=== PATIENT | female | born 1955 | race Caucasian/White ===

== ENCOUNTER 2018-08-11 02:15 | Outpatient (CLI) | payer OTHER, SELFPAY ==
[2018-08-11 10:35] LABS: Hemoglobin A1C 6.2 % (4.5-6.2)
[2018-08-11 13:26] LABS: ALT 100 U/L (12-78); AST 41 U/L (15-37); Albumin 3.9 g/dL (3.4-5.0); Alkaline Phosphatase 87 U/L (46-116); Anion Gap 11.4 mmol/L (3-11); BUN 20 mg/dL (7-18); Bilirubin, Total 0.4 mg/dL (0.2-1.0); CO2 24.6 mmol/L (21.0-32.0); Calcium 9.6 mg/dL (8.5-10.1); Chloride 104 mmol/L (98-107); Cholesterol 218 mg/dL (50-200); Glucose 122 mg/dL (70-100); HDL Cholesterol 37 mg/dL (40-60); LDL CHOLESTEROL 150 mg/dL (<100); Potassium 4.6 mmol/L (3.5-5.1); Sodium 140 mmol/L (136-145); Total Protein 7.1 g/dL (6.4-8.2); Triglyceride 177 mg/dL (30-150)
== END 2018-08-11 02:35 ==
DX: I10 Essential (primary) hypertension (principal); G47.00 Insomnia, unspecified; E03.9 Hypothyroidism, unspecified; E78.5 Hyperlipidemia, unspecified; J45.909 Unspecified asthma, uncomplicated; K21.9 Gastro-esophageal reflux disease without esophagitis; R63.8 Other symptoms and signs concerning food and fluid intake; R73.01 Impaired fasting glucose; R74.0 Nonspecific elevation of levels of transaminase and lactic acid dehydrogenase [LDH]
CPT/HCPCS: 36415; 80053; 80061; 83721; 83036; 84443

== ENCOUNTER 2018-09-18 00:49 | Outpatient (CLI) | payer OTHER, SELFPAY ==
--- NOTE | 2018-09-18 16:00 | DI.MAMMO_ITS ---
SYMPTOM/DIAGNOSIS: SCREENING, Z12.31 MAMMOGRAMS: Mammograms were interpreted according to the usual protocol including computer analysis with CAD system, tomosynthesis and C view imaging. Comparison is with prior examinations. No suspicious masses or microcalcifications are seen. There is no definite evidence of malignancy. IMPRESSION: Negative mammogram. Routine screening is recommended. Category 1, breast density A. MQSA ASSESSMENT OF FINDINGS: Negative. Category 1. Patient will receive a letter notifying them of these results. BI-RAD category A. The breasts are almost entirely fatty.
== END 2018-09-18 01:09 ==
DX: Z12.31 Encounter for screening mammogram for malignant neoplasm of breast (principal)
CPT/HCPCS: 77063; 77067

== ENCOUNTER 2018-11-12 01:37 | Outpatient (CLI) | payer OTHER, SELFPAY ==
[2018-11-12 09:18] LABS: Hemoglobin A1C 6.1 % (4.5-6.2)
== END 2018-11-12 01:57 ==
DX: E11.9 Type 2 diabetes mellitus without complications (principal)
CPT/HCPCS: 36415; 83036

== ENCOUNTER 2018-11-19 07:09 | Day surgery (SDC) | payer OTHER, SELFPAY ==
--- NOTE | 2018-11-19 06:54 | W.COLOREPORT ---
Date of service: 11/19/18 Time of Service: 08:17 Colonoscopy Report Date of procedure: 11/19/18 Pre-op diagnosis general: Colon Cancer Screening, Family history of rectal cancer in her sister Post-op diagnosis procedure note: other (Transverse polyp, Grade 2 internal hemorrhoids and severe diverticulosis) Procedure: Colonoscopy with polypectomy by cold forceps Surgeon: Magdalena Cortes Anesthesia proc note operative: other (General/ ASA 2/ Mari Dixon CRNA) Estimated blood loss (mL): 3 Pathology: other (Transverse polyp) Complications: None Disposition: same day Indications: Mrs. Thomson is a pleasant 62-year-old female seen in the office for a screening colonoscopy. This will be her first colonoscopy. She has a family history of rectal cancer in her sister who was 61. Risks, benefits and complications have been reviewed. Complications include but are not limited to bleeding, pain, perforation, missed small lesion/polyp, sore throat, aspiration and adverse reaction to the medications. Questions were entertained and answered to their satisfaction and they wished to proceed. No guarantees were given or implied. Prep: Miralax/Dulcolax Procedure Start Time: :17 Procedure End Time: 08:50 Retraction Time: 15 minutes Findings: 1. Sessile Transverse colon polyp 2. Grade 2 Internal Hemorrhoids 3. Severe Diverticulosis of descending and sigmoid colon Procedure Description: After informed consent was obtained the patient was taken to the procedure room and placed in a left decubitous position. Monitors were applied and a time out was done. The patients name, date of , procedure, allergies to medications and metal in their body was reviewed. The patient was then sedated. Once sedated and comfortable a rectal exam was done. External exam was normal. Internal exam revealed a normal sphincter tone and no palpable masses. The scope was then introduced and retro-flexed. Grade 2 internal hemorrhoids were identified. The scope was then advanced to the cecum with difficulty. There was severe diverticulosis noted of the sigmoid and descending colon. The colon was also very tortuous on the left side. The scope was advanced slowly and carefully. The TI and appendiceal orifice were identified. The prep was adequate. The scope was then slowly retracted over 15 minutes back into the rectum. Polyps were removed in the transverse colon with cold forceps. The scope was removed and the patient was woken up and taken back to Same day surgery in stable condition. The patient tolerated the procedure well and there were no immediate complications. Follow up: The patient should follow up in 3-5 years unless they develop changes in bowel habits or other new gastrointestinal complaints.
--- NOTE | 2018-11-19 06:56 | W.PM.DSUDISC ---
Discharge Plan Disposition Patient Disposition: HOME Condition: Good Discharge Details Reason For Visit: Colon Cancer Screening Attending Provider: Magdalena Cortes Primary Care Provider: Katie Dillard Home Meds and New Rx's Prescriptions: Continued Breo Ellipta 200-25 mcg/dose blister with device 1 inh IH DAILY Qty: 30 RF: 11 glipizide 2.5 mg tablet extended release 24hr 2.5 mg PO DAILY Qty: 30 RF: 11 metformin 500 mg tablet 500 mg PO HS Qty: 30 RF: 11 mupirocin calcium 2 % cream 1 applic TP BID Qty: 30 RF: 0 vitamin E 400 UNIT capsule 400 unit PO DAILY RF: 0 calcium carbonate-vitamin D3 1 EACH capsule 1 ea PO DAILY RF: 0 calcium carbonate [Tums] 200 MG tablet,chewable 1 tab.chew PO PRN RF: 0 Natural Tears 1 drp Ophthalmic BID RF: 0 albuterol sulfate [ProAir HFA] 90 mcg/actuation HFA aerosol inhaler 2 puff Inhalation QID PRN Qty: 1 RF: 11 levothyroxine [Synthroid] 100 mcg tablet 100 mcg PO DAILY Qty: 30 RF: 11 loratadine 10 mg tablet 10 mg PO DAILY PRN Qty: 30 RF: 12 pravastatin 40 mg tablet 40 mg PO HS Qty: 30 RF: 12 Discontinued polyethylene glycol 3350 17 gram/dose powder 238 g PO ONCE Qty: 238 RF: 0 bisacodyl [Dulcolax (bisacodyl)] 5 mg tablet,delayed release (DR/EC) 5 mg PO ONCE Qty: 4 RF: 0 Discharge Instructions Instructions: Colonoscopy (GEN), Diverticulosis (ED), Hemorrhoids (ED), Colorectal Polyps (GEN) Additional Instructions: Findings: One polyp Diverticulosis Internal hemorrhoids Follow up: 3-5 years Please call if you develop: fevers >101.5 Nausea or Vomiting Abdominal pain that is not transient DAY SURGERY UNIT POST COLONOSCOPY INSTRUCTIONS 1. Because there will be medication in your system for the next 24 hours, you may feel a little sleepy. Your coordination will be affected. Therefore: a. Do not drive or operate dangerous equipment for 24 hours. b. Do not drink alcohol beverages for 24 hours (not even beer). c. Plan to go home and rest for the day. 2. Generally there are no restrictions on your activity after a day or so has gone by, but you may feel a bit fatigued for a few days. 3 After you arrive home you may have a light meal and return to a normal diet as you can tolerate it without feeling sick to your stomach. 4. After surgery, you may feel pain or discomfort. This should be only transient, but if it persists please contact your doctor. 5. If there are any questions regarding the findings of your procedure, please feel free to contact your doctor. 6. If you are unable to contact your doctor with a problem, contact the hospital at [phone]. 7. Continue all your regular medications unless directed otherwise. I understand the above instructions and have no questions. Signature of Patient or Responsible Adult Escort Date/Time Name of Responsible Adult Escort Signature of Nurse Date/Time Activity:: Activity as Tolerated Diet:: High Fiber diet Discharge Orders Discharge Orders: Discharge Order (Routine); Ordered 11/19/18 Ordered By: Magdalena Cortes DS: Diagnosis Discharge Diagnosis (1) History of colonoscopy: Status: Chronic (2) Diverticulosis: (3) Internal hemorrhoids: (4) Colorectal polyp detected on colonoscopy:
[2018-11-19 07:30] VITALS: BP 130/83; PULSE 80; RESP 16; TEMP 35.8; O2SAT 97
[2018-11-19] MEDS: Lactated Ringers 1,000 ML 80 ML IV (07:35)
[2018-11-19] MEDS: Glycopyrrolate 0.2 MG/1 ML VIAL (08:10)
[2018-11-19] MEDS: PROPOFOL 500 MG/50 ML BTL 25 MG (08:10)
[2018-11-19] MEDS: Lidocaine 2% Pres-Free 5 ML VIAL (08:10)
--- NOTE | 2018-11-19 08:44 | BOWEL_PTH ---
PATIENT: Blas Thomson LOC: [facility] U#:[id number] AGE/SX: 62/F ROOM: RE11/19/[address]: Magdalena Cortes MD : 1955 BED: DIS: 11/19/2018 SPEC #: [id number] RECD: 11/19/18 12:36 STATUS: ABA REQ #: [id number] REGINALD: 11/19/18 08:[address]: Magdalena Cortes DEPT: Surgical Specimen RECD BY: Sissy Callaway ENTERED: 11/19/18 12:37 SP TYPE: Bowel OTHR DR: Katie Dillard APRN Tissues: 1 - BIOPSY BOWEL Procedures: GROSS AND MICRO LEVEL 4 Comments: [id number]
[2018-11-19 09:30] VITALS: BP 124/55; PULSE 63; RESP 16; TEMP 36.2; O2SAT 96
[2018-11-19 09:50] VITALS: BP 120/62; PULSE 60; RESP 18; TEMP 36; O2SAT 94
== END 2018-11-19 10:25 | disposition home or self-care (01) ==
LOC: SUR 07:09
PROVIDERS: Visit Provider Surgery
PROC: 0DJD8ZZ Inspection of Lower Intestinal Tract, Via Natural or Artificial Opening Endoscopic (ICD-10-PCS; CPT 45378; principal; 2018-11-19 08:30)
DX: Z12.11 Encounter for screening for malignant neoplasm of colon (principal); Z80.0 Family history of malignant neoplasm of digestive organs; D12.3 Benign neoplasm of transverse colon; K64.1 Second degree hemorrhoids; K57.30 Diverticulosis of large intestine without perforation or abscess without bleeding; K63.89 Other specified diseases of intestine; K21.9 Gastro-esophageal reflux disease without esophagitis; F17.210 Nicotine dependence, cigarettes, uncomplicated; J45.909 Unspecified asthma, uncomplicated; E11.9 Type 2 diabetes mellitus without complications; E03.9 Hypothyroidism, unspecified
CPT/HCPCS: 45380; 88305

== ENCOUNTER 2019-08-12 20:03 | Outpatient (REF) | payer OTHER, SELFPAY ==
[2019-08-12 19:51] LABS: ALT 36 U/L (14-59); AST 22 U/L (15-37); Alkaline Phosphatase 77 U/L (46-116); Anion Gap 11.1 mmol/L (3-11); BUN 13 mg/dL (7-18); Bilirubin, Total 0.4 mg/dL (0.2-1.0); CO2 23.9 mmol/L (21.0-32.0); CREATININE 0.88 mg/dL (0.55-1.02); Calcium 9.6 mg/dL (8.5-10.1); Calculated LDL 131 mg/dL (<100); Chloride 104 mmol/L (98-107); Cholesterol 224 mg/dL (<200); Glucose 134 mg/dL (74-106); HDL Cholesterol 38 mg/dL (40-60); Potassium 4.5 mmol/L (3.5-5.1); Sodium 139 mmol/L (136-145); TSH (W/Ref FT4) 4.88 uIU/mL (0.36-3.74); Total Protein 7.4 g/dL (6.4-8.2); Triglyceride 275 mg/dL (<150)
[2019-08-12 20:12] LABS: FREE T4 1.38 ng/dL (0.76-1.46)
== END 2019-08-12 20:23 ==
LOC: LBN 20:03
DX: E03.9 Hypothyroidism, unspecified (principal); E11.65 Type 2 diabetes mellitus with hyperglycemia; E78.5 Hyperlipidemia, unspecified; J45.909 Unspecified asthma, uncomplicated; K21.9 Gastro-esophageal reflux disease without esophagitis; R63.8 Other symptoms and signs concerning food and fluid intake
CPT/HCPCS: 80053; 80061; 83036; 84439; 84443

== ENCOUNTER 2019-08-19 17:24 | Outpatient (REF) | payer OTHER, SELFPAY ==
--- NOTE | 2019-08-19 15:20 | PAPFT_PTH ---
PATIENT: Blas Thomson LOC: [facility] U#:[id number] AGE/SX: 63/F ROOM: RE08/19/[address]: Katie Dillard APRN : 1955 BED: DIS: 08/19/2019 SPEC #: [id number] RECD: 08/20/19 13:02 STATUS: ABA HARRISON #: [id number] REGINALD: 08/19/19 15:[address]: Katie Dillard DEPT: [facility] Cytology RECD BY: Sissy Callaway Tissues: 1 - CX/ENDOCX FOR PAP SMEARS Procedures: PAP THIN PREP/UVM Screening HPV DNA PROBE Comments: [id number]
== END 2019-08-19 17:44 ==
LOC: LBN 17:24
DX: Z12.4 Encounter for screening for malignant neoplasm of cervix (principal)
CPT/HCPCS: 88142; 87624

== ENCOUNTER 2019-09-25 02:39 | Outpatient (CLI) | payer OTHER, SELFPAY ==
--- NOTE | 2019-09-25 17:15 | DI.MAMMO_ITS ---
EXAM: MAMMO SCREENING CLINICAL HISTORY: screening Z12.39 TECHNIQUE: Mammograms were interpreted according to the usual protocol including computer analysis w [employer] CAD system, tomosynthesis and C-view imaging. COMPARISON: 2010 through 2018 FINDINGS: The breasts are composed of mainly fatty density , Breast Density category A. No suspicious masses or suspicious microcalcifications are seen. No skin thickening or abnormal axillary lymph nodes are seen. There has been no significant change from prior exams. IMPRESSION: BI-RADS Category 1, negative. Yearly screening mammography is recommended. Breast Density - Category A - Almost entirely fatty
== END 2019-09-25 02:59 ==
DX: Z12.31 Encounter for screening mammogram for malignant neoplasm of breast (principal)
CPT/HCPCS: 77063; 77067

== ENCOUNTER 2019-10-10 01:51 | Outpatient (CLI) | payer OTHER, SELFPAY ==
[2019-10-10 09:38] LABS: Hemoglobin A1C 5.9 % (3.8-5.6)
[2019-10-10 10:17] LABS: ALT 38 U/L (14-59); AST 21 U/L (15-37); Albumin 4.1 g/dL (3.4-5.0); Alkaline Phosphatase 76 U/L (46-116); Anion Gap 10.7 mmol/L (3-11); BUN 15 mg/dL (7-18); Bilirubin, Total 0.4 mg/dL (0.2-1.0); CO2 26.3 mmol/L (21.0-32.0); Calcium 9.9 mg/dL (8.5-10.1); Chloride 104 mmol/L (98-107); Glucose 132 mg/dL (74-106); Potassium 4.5 mmol/L (3.5-5.1); Sodium 141 mmol/L (136-145); TSH (W/Ref FT4) 0.57 uIU/mL (0.36-3.74); Total Protein 7.4 g/dL (6.4-8.2)
== END 2019-10-10 02:11 ==
DX: E03.9 Hypothyroidism, unspecified (principal); E11.65 Type 2 diabetes mellitus with hyperglycemia; G47.00 Insomnia, unspecified; R63.8 Other symptoms and signs concerning food and fluid intake
CPT/HCPCS: 36415; 80053; 83036; 84443

== ENCOUNTER 2020-08-18 03:29 | Outpatient (CLI) | payer OTHER, SELFPAY ==
[2020-08-18 09:08] LABS: ALT 43 U/L (14-59); AST 16 U/L (15-37); Albumin 4.1 g/dL (3.4-5.0); Alkaline Phosphatase 88 U/L (46-116); Anion Gap 10.4 mmol/L (3-11); BUN 19 mg/dL (7-18); Bilirubin, Total 0.4 mg/dL (0.2-1.0); CO2 24.6 mmol/L (21.0-32.0); CREATININE 0.8 mg/dL (0.55-1.02); Calcium 9.5 mg/dL (8.5-10.1); Calculated LDL 119 mg/dL (<100); Chloride 106 mmol/L (98-107); Cholesterol 208 mg/dL (<200); Glucose 141 mg/dL (74-106); HDL Cholesterol 38 mg/dL (40-60); Potassium 4.5 mmol/L (3.5-5.1); Sodium 141 mmol/L (136-145); TSH (W/Ref FT4) 1.26 uIU/mL (0.36-3.74); Total Protein 7.5 g/dL (6.4-8.2); Triglyceride 257 mg/dL (<150)
== END 2020-08-18 03:30 | disposition home or self-care (01) ==
LOC: LBO 03:29
DX: Z00.00 Encounter for general adult medical examination without abnormal findings (principal); E11.65 Type 2 diabetes mellitus with hyperglycemia; E78.5 Hyperlipidemia, unspecified; E03.9 Hypothyroidism, unspecified
CPT/HCPCS: 36415; 80053; 80061; 83036; 84443

== ENCOUNTER 2020-09-04 16:07 | Outpatient (REF) | payer OTHER, SELFPAY ==
--- NOTE | 2020-09-04 15:55 | PAPFT_PTH ---
PATIENT: Blas Thomson LOC: [facility] U#:[id number] AGE/SX: 64/F ROOM: RE09/04/[address]: Nancy Ortega DO : 1955 BED: DIS: 09/04/2020 SPEC #: [id number] RECD: 09/04/20 17:59 STATUS: ABA REQ #: [id number] REGINALD: 09/04/20 15:[address]: Nancy Ortega DEPT: [facility] Cytology RECD BY: Sissy Callaway ENTERED: 09/04/20 17:59 SP TYPE: PAPFT OTHR DR: Katie Dillard APRN Tissues: 1 - CX/ENDOCX FOR PAP SMEARS Procedures: PAP THIN PREP/UVM Screening HPV DNA PROBE Comments: [id number]
== END 2020-09-04 16:08 | disposition home or self-care (01) ==
LOC: LBN 16:07
PROVIDERS: Visit Provider Obstetrics & Gynecology
DX: Z12.4 Encounter for screening for malignant neoplasm of cervix (principal); Z11.51 Encounter for screening for human papillomavirus (HPV); R87.810 Cervical high risk human papillomavirus (HPV) DNA test positive
CPT/HCPCS: 88142; 87624

== ENCOUNTER 2020-10-01 10:43 | Outpatient (CLI) | payer OTHER, SELFPAY ==
--- NOTE | 2020-10-01 09:45 | DI.MAMMO_ITS ---
Exam(s) MAMMO SCREENING EXAM: MAMMO SCREENING CLINICAL HISTORY: screening,z12.39. TECHNIQUE: Bilateral full field digital CC and MLO mammographic images were obtained with 3D tomosyn thesis and utilizing computer aided detection (CAD). COMPARISON: Prior mammograms dating back to 2011, the most recent being September 2019. FINDINGS: There are no new spiculated masses nor malignant appearing microcalcification groups. There is no significant architectural distortion nor skin thickening-retraction. IMPRESSION: No radiographic evidence of malignancy. BI-RADS Category 1 - Negative Breast Density - Category A - Almost entirely fatty Breast density Category C or D implies that the patient has dense breast tissue. Dense breast tissue can make it harder to find cancer on a mammogram. Dense breast tissue is also associated with an incr eased risk of breast cancer. This information about the result of the mammogram report was provided to the patient to raise their awareness. Use this report when you speak with the patient about their risks for breast cancer, which includes their family history. At that time, you may recommend additional screening tests (Ultrasoun d or MRI) as these tests may add significant information. A negative radiographic report should not delay biopsy if a dominant or clinically suspicious mass is present. Up to ten percent of cancers are not identified on mammography. A negative report may reinforce clinical impression. Adenosis and dense breasts may obscure an underlying neoplasm. False positive reports average 6 to 10%. Patient will receive a letter notifying them of these results.
== END 2020-10-01 11:03 ==
DX: Z12.31 Encounter for screening mammogram for malignant neoplasm of breast (principal)
CPT/HCPCS: 77063; 77067

== ENCOUNTER 2020-10-01 17:42 | Outpatient (REF) | payer OTHER, SELFPAY ==
--- NOTE | 2020-10-01 15:00 | ENDO_PTH ---
PATIENT: Blas Thomson LOC: [facility] U#:[id number] AGE/SX: 64/F ROOM: RE10/01/[address]: Nancy Ortega DO : 1955 BED: DIS: 10/01/2020 SPEC #: [id number] RECD: 10/01/20 17:53 STATUS: ABA REQ #: [id number] REGINALD: 10/01/20 15:[address]: Nancy Ortega DEPT: Surgical Specimen RECD BY: Sissy Callaway ENTERED: 10/01/20 17:54 SP TYPE: Endo OTHR DR: Katie Dillard APRN Tissues: 1 - ENDOCERVICAL BX/CURRETTE 2 - CERVICAL BIOPSY Procedures: GROSS AND MICRO LEVEL 4 Comments: [id number]
== END 2020-10-01 17:43 | disposition home or self-care (01) ==
LOC: LBN 17:42
PROVIDERS: Visit Provider Obstetrics & Gynecology
DX: N87.9 Dysplasia of cervix uteri, unspecified (principal); R87.810 Cervical high risk human papillomavirus (HPV) DNA test positive
CPT/HCPCS: 88305

== ENCOUNTER 2021-02-19 03:36 | Outpatient (CLI) | payer MEDICARE, OTHER, SELFPAY ==
[2021-02-19 09:03] LABS: Hemoglobin A1C 6.1 % (<5.7)
[2021-02-19 10:32] LABS: Calculated LDL 104 mg/dL (<100); Cholesterol 186 mg/dL (<200); HDL Cholesterol 38 mg/dL (40-60); Triglyceride 221 mg/dL (<150)
== END 2021-02-19 03:37 | disposition home or self-care (01) ==
LOC: LBO 03:38
DX: E78.5 Hyperlipidemia, unspecified (principal); E11.65 Type 2 diabetes mellitus with hyperglycemia
CPT/HCPCS: 36415; 80061; 83036

== ENCOUNTER 2021-09-03 01:46 | Outpatient (CLI) | payer OTHER, SELFPAY ==
[2021-09-03 07:34] LABS: Hemoglobin A1C 5.9 % (<5.7)
[2021-09-03 08:07] LABS: ALT 45 U/L (14-59); AST 22 U/L (15-37); Albumin 4.2 g/dL (3.4-5.0); Alkaline Phosphatase 89 U/L (46-116); Anion Gap 8.8 mmol/L (3-11); BUN 16 mg/dL (7-18); Bilirubin, Total 0.5 mg/dL (0.2-1.0); CO2 26.2 mmol/L (21.0-32.0); CREATININE 0.9 mg/dL (0.55-1.02); Calcium 9.4 mg/dL (8.5-10.1); Calculated LDL 88 mg/dL (<100); Chloride 106 mmol/L (98-107); Cholesterol 175 mg/dL (<200); Glucose 138 mg/dL (74-106); HDL Cholesterol 42 mg/dL (40-60); Potassium 4.2 mmol/L (3.5-5.1); Sodium 141 mmol/L (136-145); TSH (W/Ref FT4) 0.62 uIU/mL (0.36-3.74); Total Protein 7.4 g/dL (6.4-8.2); Triglyceride 225 mg/dL (<150)
== END 2021-09-03 01:47 | disposition home or self-care (01) ==
LOC: LBO 01:46
DX: E03.9 Hypothyroidism, unspecified (principal); E11.65 Type 2 diabetes mellitus with hyperglycemia; N20.0 Calculus of kidney; R63.8 Other symptoms and signs concerning food and fluid intake; E78.5 Hyperlipidemia, unspecified
CPT/HCPCS: 36415; 80053; 80061; 83036; 84443

== ENCOUNTER 2021-09-30 16:14 | Outpatient (REF) | payer OTHER, SELFPAY ==
--- NOTE | 2021-09-30 15:45 | PAPFT_PTH ---
PATIENT: Blas Thomson LOC: [facility] U#:[id number] AGE/SX: 65/F ROOM: RE09/30/[address]: Nancy Ortega DO : 1955 BED: DIS: 09/30/2021 SPEC #: [id number] RECD: 09/30/21 18:36 STATUS: ABA REQ #: [id number] REGINALD: 09/30/21 15:[address]: Nancy Ortega DEPT: [facility] Cytology RECD BY: Sissy Callaway ENTERED: 09/30/21 18:37 SP TYPE: PAPFT OTHR DR: Katie Dillard APRN Tissues: 1 - CX/ENDOCX FOR PAP SMEARS Procedures: PAP THIN PREP/UVM Screening HPV DNA PROBE Comments: [id number]
== END 2021-09-30 16:15 | disposition home or self-care (01) ==
LOC: LBN 16:14
PROVIDERS: Visit Provider Obstetrics & Gynecology
DX: Z11.51 Encounter for screening for human papillomavirus (HPV) (principal)
CPT/HCPCS: 88142; 87624

== ENCOUNTER → 2021-10-18 02:20 | Outpatient (CLI) | payer OTHER, SELFPAY ==
--- NOTE | 2021-10-18 08:15 | DI.MAMMO_ITS ---
Exam(s) MAMMO SCREENING EXAM: MAMMO SCREENING CLINICAL HISTORY: screening,z12.39. TECHNIQUE: Bilateral full field digital CC and MLO mammographic images were obtained with 3D tomosyn thesis and utilizing computer aided detection (CAD). COMPARISON: Prior mammograms were reviewed, the most recent being September 2020. FINDINGS: There are no CAD designations. There are no new spiculated masses nor malignant appearing microcalcification groups. There is no significant architectural distortion nor skin thickening-retraction. IMPRESSION: No radiographic evidence of malignancy. BI-RADS Category 1 - Negative Breast Density - Category A - Almost entirely fatty Breast density Category C or D implies that the patient has dense breast tissue. Dense breast tissue can make it harder to find cancer on a mammogram. Dense breast tissue is also associated with an incr eased risk of breast cancer. This information about the result of the mammogram report was provided to the patient to raise their awareness. Use this report when you speak with the patient about their risks for breast cancer, which includes their family history. At that time, you may recommend additional screening tests (Ultrasoun d or MRI) as these tests may add significant information. A negative radiographic report should not delay biopsy if a dominant or clinically suspicious mass is present. Up to ten percent of cancers are not identified on mammography. A negative report may reinforce clinical impression. Adenosis and dense breasts may obscure an underlying neoplasm. False positive reports average 6 to 10%. Patient will receive a letter notifying them of these results.
== END ==
DX: Z12.31 Encounter for screening mammogram for malignant neoplasm of breast (principal)
CPT/HCPCS: 77063; 77067

== ENCOUNTER 2022-07-14 03:42 | Outpatient (CLI) | payer OTHER, SELFPAY ==
[2022-07-14 14:23] LABS: Hemoglobin A1C 6.1 % (<5.7)
== END 2022-07-14 03:43 | disposition home or self-care (01) ==
LOC: LBO 03:42
PROVIDERS: PCP Nurse Practitioner Family; Visit Provider Nurse Practitioner Family
DX: E11.65 Type 2 diabetes mellitus with hyperglycemia (principal)
CPT/HCPCS: 36415; 83036

== ENCOUNTER 2022-09-07 04:42 | Outpatient (CLI) | payer OTHER, SELFPAY ==
[2022-09-07 12:04] LABS: ALT 42 U/L (14-59); AST 17 U/L (15-37); Albumin 4.2 g/dL (3.4-5.0); Alkaline Phosphatase 84 U/L (46-116); Anion Gap 6.9 mmol/L (3-11); BUN 16 mg/dL (7-18); Bilirubin, Total 0.4 mg/dL (0.2-1.0); CO2 27.1 mmol/L (21.0-32.0); CREATININE 0.8 mg/dL (0.55-1.02); Calcium 9.6 mg/dL (8.5-10.1); Calculated LDL 88 mg/dL (<100); Chloride 105 mmol/L (98-107); Cholesterol 162 mg/dL (<200); Estimated GFR 81.21 (mL/min/1.73m2); Glucose 126 mg/dL (74-106); HDL Cholesterol 47 mg/dL (40-60); Potassium 4.4 mmol/L (3.5-5.1); Sodium 139 mmol/L (136-145); TSH (W/Ref FT4) 0.57 uIU/mL (0.36-3.74); Total Protein 7.9 g/dL (6.4-8.2); Triglyceride 136 mg/dL (<150)
== END 2022-09-07 04:43 | disposition home or self-care (01) ==
LOC: LBO 04:42
PROVIDERS: PCP Nurse Practitioner Family; Visit Provider Nurse Practitioner Family
DX: E03.9 Hypothyroidism, unspecified (principal); E78.5 Hyperlipidemia, unspecified
CPT/HCPCS: 36415; 80053; 80061; 84443

== ENCOUNTER 2022-11-18 11:39 | Day surgery (SDC) | payer OTHER, SELFPAY ==
--- NOTE | 2022-11-18 11:54 | W.ANESPRE ---
General Info Date of Service Date Performed: 11/18/22 Height: 5 ft Weight: 75.75 kg Body Mass Index (BMI): 32.5 Surgical Procedure: Operation Date: 11/18/22 15:40 Proposed Procedure Side Surgeon p Cataract Extraction with IOL Implant Left Vishnu Galicia MD Meds Allergies and Home Medications Allergies Allergy/AdvReac Type Severity Reaction Status Date / Time No Known Allergies Allergy Verified 11/18/22 12:02 Home Medication Medication Instructions Recorded calcium carbonate 600 mg-vitamin 1 ea PO DAILY 06/28/12 D3 10 mcg (400 unit) capsule vitamin E 268 mg (400 unit) capsule 400 unit PO DAILY 06/28/12 calcium carbonate 200 mg calcium 1 tab.chew PO PRN 07/18/16 (500 mg) chewable tablet (Tums) albuterol sulfate 90 mcg/actuation 2 puff inhalation QID PRN ##1 03/07/22 aerosol inhaler (ProAir HFA) atorvastatin 20 mg tablet 20 mg PO QHS #90 tabs 03/07/22 glipizide 5 mg tablet, extended 5 mg PO DAILY #90 tabs 03/07/22 release 24 hr fluticasone furoate 200 1 inh inhalation DAILY #90 ea 09/17/22 mcg-vilanterol 25 mcg/dose inhalation powder (Breo Ellipta) levothyroxine 112 mcg tablet 112 mcg PO DAILY #90 tabs 09/17/22 loratadine 10 mg tablet (Allergy 10 mg PO DAILY PRN 09/17/22 Relief (loratadine)) melatonin 10 mg tablet 10 mg PO HS 09/17/22 metformin 500 mg tablet 500 mg PO HS #90 tabs 09/17/22 xomspojs-mde-czskt ac 400 1 tab PO DAILY 09/17/22 mcg-calcium carb 500 mg-vit K1 20 mcg tablet (Women's 50 Plus Multivitamin) Current Visit Medications: Current Medications Generic Name Dose Route Start Last Admin Trade Name Freq PRN Reason Stop Dose Admin Acetaminophen 1,000 mg 11/18/22 06:00 Acetaminophen 500 Mg Tab PO 12/18/22 05:59 Q4H PRN PRN Balanced Salt Solution 500 ml 11/18/22 06:00 Balanced Salt Soln.-Plus 500 Ml Bag OP 12/18/22 05:59 DIRECTED AB Miscellaneous Medication 0 ml 11/18/22 06:00 Prednisolone 1%, Moxifloxacin 0.5%, Nepafenac 0.1% 5ml Btl OS 12/18/22 05:59 DIRECTED [facility] Miscellaneous Medication 0 ml 11/18/22 06:00 Tropicam./Phenyleph. (1/2.5%) 5 Ml Btl OS 12/18/22 05:59 DIRECTED [facility] Tetracaine HCl 0 ml 11/18/22 06:00 Tetracaine 0.5% 4 Ml Btl OS 12/18/22 05:59 DIRECTED [facility] PFSH Active Problems Active Problems: Problem Status Onset Code Posterior subcapsular age-related cataract of left eye H25.042 Nuclear age-related cataract, left eye H25.12 Well woman exam with routine gynecological exam Z01.419 Ingrown toenail of left foot L60.0 Obesity (BMI 30-39.9) E66.9 Immunization due Z23 Immunization counseling Z71.89 Diabetes mellitus E11.9 Tobacco use disorder F17.200 Postnasal drip 09/06/17 R09.82 Kidney stone 02/22/13 N20.0 Hypothyroidism E03.9 Hyperlipidemia E78.5 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 Hoarseness of voice 02/24/15 R49.0 Gastroesophageal reflux disease 10/31/16 K21.9 Elevated ALT measurement 10/31/16 R74.0 Asthma J45.909 Allergic rhinitis due to pollen 10/09/17 J30.1 Medical History Medical History Chronic rhinitis (09/06/17) Colorectal polyp detected on colonoscopy (~11/19/18) Diverticulosis (~11/19/18) Impaired fasting glucose (06/12/14) Internal hemorrhoids (~11/19/18) MRSA (methicillin resistant Staphylococcus aureus) back of leg rt Tubular adenoma Surgical History Surgical History Dilation and curettage FOR DUB History of colonoscopy (~11/19/18) Ligation of fallopian tube Oophrectomy, 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 Tobacco Smoking/Tobacco Use Status: Current-Occasional Tobacco Type: e-cigarettes Passive smoking exposure: Yes (when I was growing up adult's smoking was everywhere.) Second hand exposure: Yes Alcohol Alcohol Intake: current Alcohol intake frequency: holidays/special occasions only Alcohol type: wine Substance Use Substance use: Never Substance use type: does not use Vital Signs and Lab Results Vital Signs Most Recent Vital Signs in EMR: Temp Pulse Resp BP Pulse Ox 36.3 C L 73 16 141/76 H 96 11/18/22 11:55 11/18/22 11:55 11/18/22 11:55 11/18/22 11:55 11/18/22 11:55 Lab Results Blood Type / Crossmatch: No Data to Display Complete Blood Count: No Data to Display Complete Metabolic Panel: Hemoglobin A1c 5.9 % (4.5-5.7) H 11/01/22 09:35 Liver Function Panel: No Data to Display Coagulation Panel: No Data to Display Cardiac Panel: No Data to Display Arterial Blood Gas: No Data to Display Venous Blood Gas: No Data to Display Pancreas Panel: No Data to Display Thyroid Panel: No Data to Display Infectious Disease: No Data to Display Blood Cultures: No Data to Display Toxicology Panel: No Data to Display Anesthesia Assessment and Plan Anesthesia History Personal History: No History of Anesthesia Complications Family History: No Family History of Anesthesia Complications Exercise Tolerance Exercise Tolerance: Metabolic Equivalents>4 Cardiac & Pulmonary Exam Cardiac Exam: Normal S1/S2 Heart Sounds Pulmonary Exam: Clear Bilateral Breath Sounds Implantable Cardiac Device Does patient have a Pacemaker or an ICD?: No Airway Exam Known Difficult Airway: No Mallampati Class: 2 Mouth Opening: Normal (> 3cm) Thyromental Distance: Less than 3 cm Neck Range of Motion: Full ROM Neck Circumference: Normal Teeth Condition: Normal Dentition ASA Classification ASA Score: ASA 2 Emergency Case?: No NPO Status NPO Status: NPO Clears >2 hours, Solids >8 hours Anesthesia Plan Resuscitation Status: Full Code Anesthesia Technique: MAC Anesthesia Airway Planned: Natural Airway Monitors Used: Standard Monitors Preoperative Comments:: 66 yo female for cataract removal. Sig PMHx: DM, occ e cig smoker, hypothyroid, GERD, asthma, Previous Anes: - colo, prop, natural airway, no issues.
[2022-11-18 11:55] VITALS: BP 141/76; PULSE 73; RESP 16; TEMP 36.3; O2SAT 96
[2022-11-18 11:57] VITALS: BMI 32.5
[2022-11-18] MEDS: Tropicam./Phenyleph. (1/2.5%) 5 ML BTL OS ×3 (12:00→12:18)
[2022-11-18] MEDS: Povidone-Iodine Ophth 30 ML BTL (13:11)
[2022-11-18] MEDS: Tetracaine 0.5% 4 ML BTL OS (13:11)
[2022-11-18] MEDS: Phenylephrine/Lidocaine (15/10) MG/ML 1 ML VIAL (13:14)
[2022-11-18] MEDS: Trypan Blue 0.06% 0.5 ML SYR (13:16)
[2022-11-18] MEDS: Balanced Salt Soln.-PLUS 500 ML BAG OP (13:16)
[2022-11-18] MEDS: Lidocaine 1% Pres-Free 5 ML VIAL (13:16)
[2022-11-18] MEDS: Duovisc Viscoelastic System EACH 1 EACH (13:16)
--- NOTE | 2022-11-18 13:36 | W.PM.DSUDISC ---
Date of service: 11/18/22 Time of Service: 13:36 Discharge Plan Disposition Patient Disposition: Home Discharge Details Attending Provider: Vishnu Galicia Primary Care Provider: Rafael Baeza Home Meds and New Rx's Prescriptions: No Action loratadine [Allergy Relief (loratadine)] 10 mg tablet 10 mg PO DAILY PRN melatonin 10 mg tablet 10 mg PO HS Women's 50 Plus Multivitamin 400 mcg-500 mg calcium-20 mcg tablet 1 tab PO DAILY metformin 500 mg tablet 500 mg PO HS Qty: 90 3RF fluticasone furoate-vilanterol [Breo Ellipta] 200-25 mcg/dose blister with device 1 inh IH DAILY Qty: 90 4RF levothyroxine 112 mcg tablet 112 mcg PO DAILY Qty: 90 3RF vitamin E 400 UNIT capsule 400 unit PO DAILY calcium carbonate-vitamin D3 1 EACH capsule 1 ea PO DAILY calcium carbonate [Tums] 200 MG tablet,chewable 1 tab.chew PO PRN Natural Tears 1 drp Ophthalmic BID 0RF albuterol sulfate [ProAir HFA] 90 mcg/actuation HFA aerosol inhaler 2 puff Inhalation QID PRN Qty: 1 11RF atorvastatin 20 mg tablet 20 mg PO QHS Qty: 90 3RF glipizide 5 mg tablet extended release 24hr 5 mg PO DAILY Qty: 90 4RF Discharge Instructions Stand Alone Forms: Post-op Topical Cataract, Timothy Zhang (DSU) Discharge Orders Discharge Orders: Discharge Order (Routine); Ordered 11/18/22 Ordered By: Vishnu Galicia DS: Diagnosis Discharge Diagnosis (1) Posterior subcapsular age-related cataract of left eye: Status: Resolved (2) Nuclear age-related cataract, left eye: Status: Resolved
--- NOTE | 2022-11-18 13:37 | ROE_ITS ---
Date of service: 11/18/22 Time of Service: 13:37 Operative Note Operative Note DATE OF PROCEDURE: 11/18/22 PRE-OP DIAGNOSIS: Nuclear/posterior subcapsular cataract, left eye POST-OP DIAGNOSIS: same PROCEDURE: Cataract extraction using phacoemulsification with intraocular lens implant, left eye SURGEON: Vishnu Galicia ANESTHESIA TYPE: Local By Surgeon and MAC Refer to Anesthesia Record PATHOLOGY: none sent COMPLICATIONS: None Patient was transported to: same day Patient's condition: stable Implants: Jordan and Jordan Tecnis Eyhance [id number] Indications: Progressive decreased vision due to cataract, left eye Procedure Description: CATARACT SURGERY OPERATIVE REPORT PREOPERATIVE DIAGNOSIS: 1. Nuclear/posterior subcapsular cataract, left eye POSTOPERATIVE DIAGNOSIS: Same OPERATION: 1. Cataract extraction using phacoemulsification with posterior chamber intraocular lens implant, left eye. IOL: IOL Hoop Maker Helper Machine/Model: Jordan & Jordan Tecnis Eyhance DIB00 IOL Power: + 20.5 diopters IOL Serial Number: [id number] Optic Diameter: 6.0 mm Haptic/Overall Diameter: 13.0 mm PHACO INFO: Jayjay [employer]urion Vision System with OZil and Active Fluidics Cumulative Dispersed Energy (CDE): 18.58 seconds SURGEON: Vishnu Galicia MD, SHEILA ANESTHESIA: Monitored [facility] (MAC), with local sub-tenon's anesthetic infiltration COMPLICATIONS: None SPECIMENS: None INDICATIONS FOR PROCEDURE: The patient is a 66-year-old lady with history of diminished visual acuity in her left eye secondary to the development of dense nuclear/posterior subcapsular cataract. She is significantly symptomatic that she desires cataract surgery and attempt to improve and maximize her vision. The option of cataract surgery was offered to the patient and she wished to proceed. See office notes for detailed information. PROCEDURE: The correct surgical eye was identified and marked as the left eye and the pupil was dilated in the preoperative area using mydriatics and cycloplegics. The dilated pupil size was 7.0 mm. The patient elected to proceed without oral sedation. The patient was brought to the operating room where cardiopulmonary monitoring was instituted and surgical time-out was performed, confirming the correct operative eye and IOL power. Topical anesthesia was administered and ophthalmic povidone-iodine 5% was instilled into the conjunctival fornices. The jarrett-ocular area was prepped with Betadine 10% solution and draped in the usual sterile fashion for intraocular surgery, including an aperture drape. A Tegaderm transparent film dressing was cut in half and used to cover the lashes and lid margins. Care was taken to sequester the lashes and lid margins under the Tegaderm dressing. A lid speculum was placed between the lids of the operative eye and the Jayjay Lux[employer] Revalia operating microscope was maneuvered into position. Willem scissors were then used to make a conjunctival buttonhole approximately 6mm posterior to the limbus in the inferonasal quadrant. Blunt dissection was carried out to expose bare sclera, and a blunt-tipped sub-tenon?s anesthesia cannula was introduced and passed posteriorly along the globe where non- preserved plain lidocaine was injected into posterior sub-Tenon?s space. A sideport knife was used to make a paracentesis port. VisionBlue was injected into the anterior chamber and allowed to sit for 20 seconds. Intraocular phenylephrine/lidocaine was injected into the anterior chamber.. The anterior chamber was filled with viscoelastic. A keratome knife was used to construct a 2-plane near-clear corneal tunnel extending 2.0mm into clear cornea. A flap was raised on the anterior capsule and capsulorhexis forceps were used to complete a continuous curvilinear capsulorhexis of 5.5 mm. Balanced salt solution was then used to perform cortical cleaving hydrodissection and nuclear hydrodelineation until the lens could be freely rotated within the capsular bag. The lens nucleus was then disassembled and removed within the capsular bag and iris plane using phacoemulsification. Residual cortical material was removed using the irrigation/aspiration handpiece. The posterior capsule was carefully polished to remove as much residual lens epithelial cells as safely possible. The capsular bag was then inflated and the anterior chamber deepened with viscoelastic. The lens implant described above was inserted into the capsular bag using the Jordan and Jordan Simplicity pre-loaded injector. A Kuglen hook was used to dial the IOL into position. Residual viscoelastic was then removed first from posterior to the IOL, then from the anterior chamber using the I/A handpiece. The lens implant was noted to center nicely within the capsular bag. The incisions were stromally hydrated, and the anterior chamber was reformed using BSS. Then 0.5cc of moxifloxacin 1.0mg/ml were injected into the capsular bag and anterior chamber. The incisions were checked with a Weck spear and found to be secure. Several drops of ophthalmic povidone-iodine 5% were then applied to the eye followed by two drops of Imprimis combination prednisolone/moxifloxacin/nepafenac solution. The drapes were removed and a clear plastic protective eye shield was placed over the eye. The patient was then returned to Same Day Surgery in stable condition.
[2022-11-18 13:38] VITALS: BP 128/64; PULSE 67; RESP 16; TEMP 36.3; O2SAT 95
--- NOTE | 2022-11-18 14:05 | W.ANESPOSTOP ---
Postoperative Evaluation Date, Time and Location Date Performed: 11/18/22 Time Performed: 13:45 Patient Location: Day Surgery Unit Vital Signs Most Recent Imported Vital Signs: Most Recent Vital Signs Temp Pulse Resp BP Pulse Ox 36.3 C L 67 16 128/64 95 11/18/22 13:38 11/18/22 13:38 11/18/22 13:38 11/18/22 13:38 11/18/22 13:38 Pain Score Most Recent Pain Score: Most Recent Pain Score Pain Level 0 11/18/22 13:38 Assessment Mental Status: Awake (Alert & Oriented to Patient Baseline) Airway and Respiratory Function: Patent airway with normal (patient baseline) respiratory exam Cardiovascular Function: Hemodynamically Stable Hydration Status: Adequately Hydrated Nausea & Vomiting: No Nausea or Vomiting Pain: Pt. Denies Any Pain Peripheral Nerve Block: Patient did not receive a nerve block
== END 2022-11-18 14:06 | disposition home or self-care (01) ==
PROVIDERS: PCP Nurse Practitioner Family; Visit Provider Ophthalmology
PROC: (CPT 66984; principal; 2022-11-18 15:30)
DX: H25.042 Posterior subcapsular polar age-related cataract, left eye (principal); H25.12 Age-related nuclear cataract, left eye; K21.9 Gastro-esophageal reflux disease without esophagitis; F17.200 Nicotine dependence, unspecified, uncomplicated
CPT/HCPCS: 66984; V2632

== ENCOUNTER → 2022-11-24 04:29 | Outpatient (CLI) | payer OTHER, SELFPAY ==
--- NOTE | 2022-11-24 07:00 | DI.DEXA_ITS ---
Exam(s) XR DEXA BONE DENSITY W/WO JHONATHAN EXAM: XR DEXA BONE DENSITY W/WO JHONATHAN CLINICAL HISTORY: screening for osteoporosis IN POSTMENOPAUSAL WOMAN,Z78.0 TECHNIQUE: Routine DEXA evaluation of the lumbar spine, hip, or forearm. COMPARISON: No exams were available for comparison FINDINGS: Performed on a Hologic unit. Lateral image: No compression fracture evident. Lumbar Spine total T-score: -0.5 Hip total T-score:-0.8 Independent reading at the level of the femoral neck yields T-score of -1.4 Forearm total T-score: IMPRESSION: Bone mineral density measures in the osteopenia range. Fracture risk is moderate. Note: Any spine fracture indicates 5x risk for subsequent spine fracture and 2x risk for subsequent h ip fracture. World Health Organization criteria for BMD interpretation classify patients: Normal...... T- Score at or above -1.0 Osteopenic... T- Score between -1.0 and -2.5 Osteoporosis... T-Score at or below -2.5
--- NOTE | 2022-11-24 07:00 | DI.MAMMO_ITS ---
Exam(s) MAMMO SCREENING EXAM: MAMMO SCREENING CLINICAL HISTORY: screening,Z12.39. TECHNIQUE: Bilateral full field digital CC and MLO mammographic images were obtained with 3D tomosyn thesis and utilizing computer aided detection (CAD). COMPARISON: Prior mammograms were reviewed. FINDINGS: There has been no significant change in the appearance and distribution of the fibroglandular tissue which is again noted be predominately fatty.. No CAD designations. There are no new spiculated masses nor malignant appearing microcalcification groups. There is no significant architectural distortion nor skin thickening-retraction. IMPRESSION: No radiographic evidence of malignancy. BI-RADS Category 1 - Negative Breast Density - Category A - Almost entirely fatty Breast density Category C or D implies that the patient has dense breast tissue. Dense breast tissue can make it harder to find cancer on a mammogram. Dense breast tissue is also associated with an incr eased risk of breast cancer. This information about the result of the mammogram report was provided to the patient to raise their awareness. Use this report when you speak with the patient about their risks for breast cancer, which includes their family history. At that time, you may recommend additional screening tests (Ultrasoun d or MRI) as these tests may add significant information. A negative radiographic report should not delay biopsy if a dominant or clinically suspicious mass is present. Up to ten percent of cancers are not identified on mammography. A negative report may reinforce clinical impression. Adenosis and dense breasts may obscure an underlying neoplasm. False positive reports average 6 to 10%. Patient will receive a letter notifying them of these results.
== END ==
PROVIDERS: PCP Nurse Practitioner Family; Visit Provider Nurse Practitioner Family
DX: Z78.0 Asymptomatic menopausal state (principal); Z12.31 Encounter for screening mammogram for malignant neoplasm of breast; M81.0 Age-related osteoporosis without current pathological fracture; Z13.820 Encounter for screening for osteoporosis
CPT/HCPCS: 77063; 77067; 77080